=== PATIENT | female | born 1965 | race Caucasian/White ===

== ENCOUNTER → 2018-03-25 | Outpatient (CLI) | payer OTHER ==
[~2018-03-25] MED LIST: CA C PO; CALC600T63 PO; DIPH-1 PO; MULT1TAB64 PO; MV,C400T PO; SERT-1 PO; SERT-181 PO; TRAZ-156 PO
--- NOTE | 2018-03-25 12:27 | RADIOLOGY IMAGING REPORT ---
[place] [facility] [place]: Arely Mills : 1965 MR: [id number] V: [id number] EXAM DATE: ORDERING PHYSICIAN: KOTA FREDERICK TECHNOLOGIST: Location: [facility] - [place] Patient: Arely Mills : 1965 Visit/Account:[id number] Date of Sevice: 03/25/2018 Study: Frontal and lateral views of the chest Indication: Chronic cough Comparison study: None Findings: PA and lateral views of the chest demonstrate no evidence of acute infiltrate. There is no evidence of pleural effusion. There is no evidence of pneumothorax. The mediastinal, cardiac, and diaphragmatic contours are unremarkable. The visualized bony structures are unremarkable. IMPRESSION: Unremarkable chest. Report Dictated By: Ady Cutler at 03/25/2018 12:20 PM Report E-Signed By: Ady Cutler at 03/25/2018 12:24 PM WSN:[id number]
== END ==
LOC: RAD 11:38
PROVIDERS: ATTEND Emergency Medicine
DX: R05 Cough (principal)
CPT/HCPCS: 71046